=== PATIENT | male | born 2000 ===

== ENCOUNTER 2020-03-29 16:39 | Emergency (ER) | payer OTHER ==
[~2020-03-29] VITALS: Ht 172.7 cm; Wt 59.0 kg
[~2020-03-29 16:39] MED LIST: BACITO TP; CYCL10 PO; Cyclobenzaprine5 MG PO; IBUP600 PO; IBUP800 PO; LIDO700A20 TOP; Norco 5-325 Ta1 EACH PO; OXYACE5T PO; RXOXYACE PO; Zofran Odt4 MG SL; Zovirax800 MG PO
[2020-03-29] MEDS ORDERED: IBUP800 PO (17:15)
== END 2020-03-29 17:29 | disposition home or self-care (01) ==
LOC: ER 16:39
DX: K08.89 Other specified disorders of teeth and supporting structures (principal); F17.210 Nicotine dependence, cigarettes, uncomplicated
CPT/HCPCS: 99282; A9270